=== PATIENT | male | born 1980 | race Caucasian/White ===

== ENCOUNTER 2018-10-26 18:54 | Emergency (ER) | payer SELFPAY ==
[2018-10-26 19:00] VITALS: BP 153/88
[2018-10-26] MEDS ORDERED: MAG HYDROX/AL HYDROX/SIMETH SUSP 30 ML UDCUP PO ONE (19:08)
[2018-10-26] MEDS ORDERED: METOCLOPRAMIDE HCL ORAL SOLN 10 MG/10 ML UDCUP PO ONE (19:08)
[2018-10-26] MEDS ORDERED: LIDOCAINE 2% VISCOUS SOLN 20 ML UDCUP PO ONE (19:08)
--- NOTE | 2018-10-26 19:11 | ER Document Report ---
ED Medical Screen (RME) - General Chief Complaint: Abdominal Pain Stated Complaint: ABDOMINAL PAIN Time Seen by Provider: 10/26/18 19:04 Mode of Arrival: Ambulatory Information source: Patient Notes: 38-year-old male presents emergency department with complaints of abdominal pain bloating for the past week. Reports some nausea. She recently quit smoking. Reports history of heartburn for 10 years. Patient also reports he takes a lot of ibuprofen for history of dental pain. I have greeted and performed a rapid initial assessment of this patient. A comprehensive ED assessment and evaluation of the patient, analysis of test results and completion of the medical decision making process will be conducted by additional ED providers. Dictation of this chart was performed using voice recognition software; therefore, there may be some unintended grammatical errors. - Related Data Allergies/Adverse Reactions: No Known Allergies Allergy (Verified 10/26/18 18:58) Physical Exam - Vital signs Vitals: Temp Pulse Resp BP Pulse Ox 98.6 F 64 16 153/88 H 96 10/26/18 18:58 10/26/18 18:58 10/26/18 18:58 10/26/18 18:58 10/26/18 18:58 Course - Vital Signs Vital signs: Temp Pulse Resp BP Pulse Ox 98.6 F 64 16 153/88 H 96 10/26/18 18:58 10/26/18 18:58 10/26/18 18:58 10/26/18 18:58 10/26/18 18:58
[2018-10-26 19:53] LABS: ABSOLUTE EOSINOPHILS # (AUTO) 0.3 10^3/uL (0.0-0.6); ABSOLUTE LYMPHOCYTES (AUTO) 1.9 10^3/uL (0.5-4.7); ABSOLUTE MONOCYTES (AUTO) 0.6 10^3/uL (0.1-1.4); ABSOLUTE NEUT (AUTO) 6.7 10^3/uL (1.7-8.2); BASOPHILS % (AUTO) 0.3 % (0-2); EOSINOPHILS % (AUTO) 2.7 % (0-6); HEMATOCRIT 42.7 % (37.9-51.0); HEMOGLOBIN 14.3 g/dL (13.5-17.0); LYMPHOCYTES % (AUTO) 19.9 % (13-45); MEAN CORPUSCULAR HEMOGLOBIN 27.4 pg (27.0-33.4); MEAN CORPUSCULAR HGB CONC 33.5 g/dL (32.0-36.0); MEAN CORPUSCULAR VOLUME 82 fl (80-97); MONOCYTES % (AUTO) 6.8 % (3-13); PLATELET COUNT 257 10^3/uL (150-450); RED BLOOD COUNT 5.22 10^6/uL (4.35-5.55); RED CELL DISTRIBUTION WIDTH 13.9 % (11.5-14.0); SEGMENTED NEUTROPHILS % (AUTO) 70.3 % (42-78); TOTAL CELLS COUNTED % (AUTO) 100 %; WHITE BLOOD COUNT 9.5 10^3/uL (4.0-10.5)
[2018-10-26 20:00] LABS: APPEARANCE,URINE CLEAR; BILIRUBIN,URINE NEGATIVE (NEGATIVE); COLOR,URINE YELLOW; GLUCOSE, URINE NEGATIVE (NEGATIVE); KETONES,URINE NEGATIVE (NEGATIVE); LEUKOCYTE ESTERASE,URINE NEGATIVE (NEGATIVE); NITRITE,URINE NEGATIVE (NEGATIVE); PROTEIN,URINE NEGATIVE (NEGATIVE); URINE SPECIFIC GRAVITY 1.024; UROBILINOGEN,URINE NEGATIVE mg/dL (<2.0)
[2018-10-26 20:11] LABS: ALBUMIN 4.3 g/dL (3.5-5.0); ALKALINE PHOSPHATASE 83 U/L (38-126); ANION GAP 9 (5-19); ASPARTATE AMINO TRANSFERASE 25 U/L (17-59); BILIRUBIN,DIRECT 0.1 mg/dL (0.0-0.4); BILIRUBIN,TOTAL 0.4 mg/dL (0.2-1.3); BLOOD UREA NITROGEN 22 mg/dL (7-20); CALCIUM 10.1 mg/dL (8.4-10.2); CARBON DIOXIDE 28 mmol/L (22-30); CHLORIDE 101 mmol/L (98-107); GLUCOSE 113 mg/dL (75-110); POTASSIUM 4.1 mmol/L (3.6-5.0); TOTAL PROTEIN 7.4 g/dL (6.3-8.2)
== END 2018-10-26 21:21 | disposition left against medical advice (07) ==
LOC: ER 18:54
DX: Z53.21 Procedure and treatment not carried out due to patient leaving prior to being seen by health care provider (principal); R10.9 Unspecified abdominal pain; R14.0 Abdominal distension (gaseous); R11.0 Nausea
CPT/HCPCS: 36415; 83690; 85025; 80053; 81001; J3490; 99281

== ENCOUNTER 2019-02-03 19:22 | Emergency (ER) | payer SELFPAY ==
[2019-02-03 19:44] VITALS: BP 126/79
[2019-02-03] MEDS ORDERED: KETOROLAC TROMETHAMINE 60 MG/2 ML SDV IM ONE (19:55)
--- NOTE | 2019-02-03 20:01 | ER Document Report ---
HPI - HPI Time Seen by Provider: 02/03/19 19:52 Notes: Patient is a 38-year-old male with no significant past medical history presents complaining of left trapezius muscle pain that radiates down into his back and occasionally into his arm is been ongoing since yesterday without precipitating event. Patient states that he supposed to work tomorrow, but if he has this type of pain he does now believe he can perform his duty appropriately and may need a work note. Denies drug allergies. Patient states that movement does make his pain worse. He is otherwise eating and drinking without difficulty. He is urinating normally. Denies any headache, fever, head injury, neck pain, URI, sore throat, chest pain, palpitations, syncope, cough, shortness of breath, wheeze, dyspnea, abdominal pain, nausea/vomiting/diarrhea, urinary retention, dysuria, hematuria, loss of control of bowel or bladder, numbness/tingling, saddle anesthesia, muscle paralysis/weakness, or rash. - ROS Systems Reviewed and Negative: Yes All other systems reviewed and negative Past Medical History - Social History Smoking Status: Unknown if Ever Smoked Family History: Reviewed & Not Pertinent Vertical Provider Document - CONSTITUTIONAL Agree With Documented VS: Yes Notes: PHYSICAL EXAMINATION: GENERAL: Well-appearing, well-nourished and in no acute distress. NECK: Normal range of motion, supple without lymphadenopathy. Non-tender. Spurling negative. No rigidity/meningismus. LUNGS: Breath sounds clear to auscultation bilaterally and equal. No wheezes rales or rhonchi. HEART: Regular rate and rhythm without murmurs, rubs, gallops. Musculoskeletal: Lt shoulder: FROM to passive/active. Strength 5+/5. Neg speed test. No crepitus. No erythema or warmth. No deformity or ecchymosis. RC intact 5+/5 strength. + reproducible tenderness and trigger point/spasming to the left trapezius muscle by palpation and ROM. Extremities: No cyanosis, clubbing, or edema b/l. Peripheral pulses 2+. Capillary refill less than 3 seconds. NEUROLOGICAL: Normal speech, normal gait. Normal sensory, motor exams PSYCH: Normal mood, normal affect. SKIN: Warm, Dry, normal turgor, no rashes or lesions noted. Course - Re-evaluation Re-evalutation: 02/03/19 19:59 Patient is an afebrile, well-hydrated, 38-year-old male who presents to the ED with Left trapezius muscle pain. Vitals are acceptable. PE is otherwise unremarkable for any focal neurological deficits. Pt given toradol IM. He has no significant tachycardia, tachypnea, or hypoxia. He is nontoxic-appearing and is tolerating p.o. without difficulties. There are no signs of infection. No other red flag symptoms noted. No other labs or imaging warranted at this time based on H&P. Low suspicion for any meningitis, fracture, expanding/ruptured A AA, cauda equina syndrome, septic joint, epidural mass lesion/abscess, herniated disc causing severe spinal stenosis, or other systemic infection at this time. Patient is aware that his condition can change from initial presentation and that he needs monitor symptoms closely for any acute changes. I will send him home with a prescription for motrin and robaxin. Conservative measures otherwise for symptoms. Recheck with your PCM in 3-5 days. Consider consult with orthopedic/physical therapy. Return to the ED with any worsening/concerning symptoms otherwise as reviewed discharge. Patient is in agreement. - Vital Signs Vital signs: Temp Pulse Resp BP Pulse Ox 98.0 F 82 16 126/79 H 96 02/03/19 19:44 02/03/19 19:44 02/03/19 19:44 02/03/19 19:44 02/03/19 19:44 Discharge - Discharge Clinical Impression: Trapezius muscle spasm Condition: Stable Disposition: HOME, SELF-CARE Instructions: Muscle Relaxers ([facility]) Additional Instructions: Rest, Ice, Compression Tylenol/ibuprofen as needed Light stretches daily Strength exercises as able Moist heat and massage may help F/u with your PCP in 3-5 days for a recheck Consider consult(s) with Orthopedics/physical therapy for ongoing/worsening symptoms Return to the ED with any worsening symptoms and/or development of fever, headache, chest pain, palpitations, syncope, shortness of breath, trouble breathing, abdominal pain, n/v/d, muscle weakness/paralysis, numbness/tingling, swelling, redness, or other worsening symptoms that are concerning to you. Prescriptions: Ibuprofen [Motrin 800 mg Tablet] 800 mg PO Q8H PRN #15 tab PRN Reason: Methocarbamol [Robaxin 750 mg Tablet] 750 mg PO TID PRN #10 tablet PRN Reason: Forms: Elevated Blood Pressure, Return to Work Referrals: [facility] [Provider Group] - Follow up as needed
== END 2019-02-03 20:18 | disposition home or self-care (01) ==
LOC: ER 19:22
DX: M62.830 Muscle spasm of back (principal); M25.512 Pain in left shoulder
CPT/HCPCS: 99283

== ENCOUNTER 2019-02-06 04:03 | Emergency (ER) | payer SELFPAY ==
[2019-02-06 05:09] LABS: ABSOLUTE BASOPHILS # (AUTO) 0.1 10^3/uL (0.0-0.2); ABSOLUTE EOSINOPHILS # (AUTO) 0.4 10^3/uL (0.0-0.6); ABSOLUTE LYMPHOCYTES (AUTO) 2.1 10^3/uL (0.5-4.7); ABSOLUTE MONOCYTES (AUTO) 0.5 10^3/uL (0.1-1.4); ABSOLUTE NEUT (AUTO) 4.9 10^3/uL (1.7-8.2); BASOPHILS % (AUTO) 0.7 % (0-2); EOSINOPHILS % (AUTO) 5.4 % (0-6); HEMATOCRIT 45.6 % (37.9-51.0); HEMOGLOBIN 15.3 g/dL (13.5-17.0); LYMPHOCYTES % (AUTO) 25.7 % (13-45); MEAN CORPUSCULAR HEMOGLOBIN 27.6 pg (27.0-33.4); MEAN CORPUSCULAR HGB CONC 33.6 g/dL (32.0-36.0); MEAN CORPUSCULAR VOLUME 82 fl (80-97); MONOCYTES % (AUTO) 6.7 % (3-13); PLATELET COUNT 240 10^3/uL (150-450); RED BLOOD COUNT 5.55 10^6/uL (4.35-5.55); RED CELL DISTRIBUTION WIDTH 13.7 % (11.5-14.0); SEGMENTED NEUTROPHILS % (AUTO) 61.5 % (42-78); TOTAL CELLS COUNTED % (AUTO) 100 %
[2019-02-06 05:28] LABS: ALKALINE PHOSPHATASE 76 U/L (38-126); ANION GAP 9 (5-19); ASPARTATE AMINO TRANSFERASE 23 U/L (17-59); BILIRUBIN,DIRECT 0.2 mg/dL (0.0-0.4); BILIRUBIN,TOTAL 0.3 mg/dL (0.2-1.3); BLOOD UREA NITROGEN 23 mg/dL (7-20); CALCIUM 9.5 mg/dL (8.4-10.2); CARBON DIOXIDE 29 mmol/L (22-30); CHLORIDE 103 mmol/L (98-107); CREATINE KINASE 137 U/L (55-170); GLUCOSE 114 mg/dL (75-110); POTASSIUM 3.8 mmol/L (3.6-5.0)
[2019-02-06 05:39] LABS: CREATINE KINASE MB 2.15 ng/mL (<4.55)
[2019-02-06 05:40] LABS: TROPONIN I < 0.012 ng/mL
--- NOTE | 2019-02-06 09:08 | EKG REPORT ---
SEVERITY:- ABNORMAL ECG - SINUS RHYTHM MULTIPLE ATRIAL PREMATURE COMPLEXES : Confirmed by: Aditya Cabezas MD 06-Feb-2019 09:07:44
--- NOTE | 2019-02-06 09:34 | ER Document Report ---
ED Cardiac - General Chief Complaint: Chest Pain Stated Complaint: CHEST PAIN Time Seen by Provider: 02/06/19 08:35 Primary Care Provider: [facility] [Provider Group] - Follow up in 3-5 days SHANTA DE LEON MD [ACTIVE STAFF] - Follow up in 3-5 days Notes: 38-year-old male with no significant past medical history presents with 6 chest pain that is sternal that started last night. Patient has been having left shoulder pain and numbness and tingling down his left arm for the past few days and was seen in this ER a few days ago and given muscle relaxers and ibuprofen. Patient states he became concerned when it started to radiate into his chest. Patient denies any associated dyspnea, nausea/vomiting, dizziness. Patient's family history is significant for a cousin who at the age of 22 due to cardiac issues. Patient denies any other family history. TRAVEL OUTSIDE OF THE [place] IN LAST 30 DAYS: No - Related Data Allergies/Adverse Reactions: No Known Allergies Allergy (Verified 10/26/18 18:58) Home Medications: robaxin prn. motrin prn Past Medical History - Social History Smoking Status: Former Smoker Family History: Reviewed & Not Pertinent Patient has suicidal ideation: No Patient has homicidal ideation: No Review of Systems - Review of Systems Notes: Constitutional: Negative for fever. HENT: Negative for sore throat. Eyes: Negative for visual changes. Cardiovascular: Positive for chest pain. Respiratory: Negative for shortness of breath. Gastrointestinal: Negative for abdominal pain, vomiting or diarrhea. Genitourinary: Negative for dysuria. Musculoskeletal: Positive for shoulder/arm pain. Negative for back pain. Skin: Negative for rash. Neurological: Negative for headaches, weakness or numbness. 10 point ROS negative except as marked above and in HPI. Physical Exam - Vital signs Vitals: Temp Pulse Resp BP Pulse Ox 98.1 F 69 18 135/86 H 97 02/06/19 04:17 02/06/19 04:17 02/06/19 04:17 02/06/19 04:17 02/06/19 04:17 - Notes Notes: GENERAL: Well-appearing, well-nourished and in no acute distress. HEAD: Atraumatic, normocephalic. EYES: Extraocular movements intact, sclera anicteric, conjunctiva are normal. NECK: Normal range of motion, supple without lymphadenopathy or JVD. LUNGS: Breath sounds clear to auscultation bilaterally and equal. No wheezes rales or rhonchi. HEART: Regular rate and rhythm without murmurs, rubs or gallops. EXTREMITIES: Normal range of motion, no pitting or edema. No clubbing or cyanosis. NEUROLOGICAL: Cranial nerves II through XII grossly intact. Normal speech, normal gait. PSYCH: Normal mood, normal affect. SKIN: Warm, Dry, normal turgor, no rashes or lesions noted. Course - Re-evaluation Re-evalutation: 02/06/19 Presentation of chest pain in an otherwise well appearing patient. Low clinical suspicion for ACS given clinical history, exam, EKG without ST elevations or depressions, and negative initial troponin. HEART score 1. PE also seems unlikely given clinical history, absence of tachycardia or dyspnea. Patient is PERC criteria negative. CXR without evidence of pneumothorax or pneumonia. No widened mediastinum. Aortic dissection also seems unlikely given history, symmetric pulses, CXR, and vitals. HEART Score: 1 Chest pain in a patient without evidence of cardiac or other serious etiology on workup today. I discussed with patient that, based on their age, risk factors and emergency department testing today, the likelihood that their symptoms are related to a heart attack is very low (estimated risk of heart attack or over the next 30 days of less than 1%). The patient demonstrates decision making capacity and has verbalized an understanding of these risks to me. Based on this, the patient has chosen to follow-up as an outpatient. Usual chest pain return precautions reviewed. The patient states understanding and agreement with this plan. 02/06/19 10:15 patient was prescribed Robaxin and ibuprofen last visit. Patient states this is not helping. Switch prescription to Flexeril. Patient given sedation warning. - Vital Signs Vital signs: Temp Pulse Resp BP Pulse Ox 98.2 F 69 15 139/97 H 100 02/06/19 08:08 02/06/19 04:17 02/06/19 09:01 02/06/19 09:01 02/06/19 09:01 - Laboratory Result Diagrams: 02/06/19 04:40 02/06/19 04:40 Laboratory results interpreted by me: 02/06/19 04:40 BUN 23 H Glucose 114 H - EKG Interpretation by Me EKG shows normal: Sinus rhythm Rate: Normal Rhythm: NSR - Rate 60 Discharge - Discharge Clinical Impression: Muscle strain Chest pain Qualifiers: Chest pain type: unspecified Qualified Code(s): R07.9 - Chest pain, unspecified Condition: Stable Disposition: HOME, SELF-CARE Instructions: Chest Pain of Unclear Cause ([facility]) Additional Instructions: You were seen today for chest pain. The exact cause of your pain is unclear. However, based on your cardiac enzyme testing, chest x-ray, and EKG it does not appear that it is from an immediately life-threatening cause at this time. Although your testing here is normal is critical that you follow-up with your primary care physician for continued evaluation of this chest pain and possible stress testing. I recommended you see your physician within the next 24-48 hours to be evaluated for consideration of a stress test. Please return to emergency department immediately if you have worsening of your chest pain, shortness of breath, vomiting, become unable to exert yourself due to pain or difficulty breathing, you pass out, or have any pain that radiates into your arms, jaw, or back. Please also return if you have any additional symptoms that are concerning to you. Prescriptions: Cyclobenzaprine HCl [Flexeril 10 mg Tablet] 10 mg PO TIDP PRN #15 tab PRN Reason: Forms: Return to Work Referrals: SHANTA DE LEON MD [ACTIVE STAFF] - Follow up in 3-5 days [facility] [Provider Group] - Follow up in 3-5 days
--- NOTE | 2019-02-06 09:51 | RADIOLOGY REPORT (SQ) ---
EXAM DESCRIPTION: CHEST 2 VIEWS COMPLETED DATE/TIME: 02/06/2019 9:38 am REASON FOR STUDY: chest pain COMPARISON: None. EXAM PARAMETERS: NUMBER OF VIEWS: two views TECHNIQUE: Digital Frontal and Lateral radiographic views of the chest acquired. RADIATION DOSE: NA LIMITATIONS: none FINDINGS: LUNGS AND PLEURA: No opacities, masses or pneumothorax. No pleural effusion. MEDIASTINUM AND HILAR STRUCTURES: No masses or contour abnormalities. HEART AND VASCULAR STRUCTURES: Heart normal size. No evidence for failure. BONES: No acute findings. HARDWARE: None in the chest. OTHER: No other significant finding. IMPRESSION: NO ACUTE RADIOGRAPHIC FINDING IN THE CHEST. TECHNICAL DOCUMENTATION: JOB ID: [id number] [employer]- All Rights Reserved Reading location - IP/workstation name: [email or web address]
[2019-02-06 11:03] VITALS: BP 137/95
== END 2019-02-06 11:01 | disposition home or self-care (01) ==
LOC: ER 04:03
DX: R07.9 Chest pain, unspecified (principal); M25.512 Pain in left shoulder; R20.0 Anesthesia of skin
CPT/HCPCS: 36415; 71046; 80053; 82550; 82553; 84484; 85025; 93005; 93010; 99285

== ENCOUNTER 2019-12-11 02:45 | Emergency (ER) | payer SELFPAY ==
[2019-12-11] MEDS ORDERED: PREDNISONE 20 MG TABLET PO ONE (05:18)
[2019-12-11] MEDS ORDERED: NORMAL SALINE 1000 ML 1,000 ML IV ONE (05:19)
[2019-12-11] MEDS ORDERED: ACETAMINOPHEN WITH CODEINE #3 TABLET PO ONE (05:19)
[2019-12-11] MEDS ORDERED: ACETAMINOPHEN 325 MG TABLET PO ONE (05:19)
[2019-12-11] MEDS ORDERED: IPRATROPIUM/ALBUTEROL 0.5-2.5 MG/3 ML AMPUL NEB ONE (05:20)
[2019-12-11] MEDS ORDERED: AZITHROMYCIN 250 MG TABLET PO ONE (05:33)
[2019-12-11 05:34] LABS: ABSOLUTE BASOPHILS # (AUTO) 0.1 10^3/uL (0.0-0.2); ABSOLUTE EOSINOPHILS # (AUTO) 0.8 10^3/uL (0.0-0.6); ABSOLUTE LYMPHOCYTES (AUTO) 1.3 10^3/uL (0.5-4.7); ABSOLUTE MONOCYTES (AUTO) 0.7 10^3/uL (0.1-1.4); ABSOLUTE NEUT (AUTO) 9.3 10^3/uL (1.7-8.2); BASOPHILS % (AUTO) 0.6 % (0-2); EOSINOPHILS % (AUTO) 6.7 % (0-6); HEMATOCRIT 47.5 % (37.9-51.0); HEMOGLOBIN 15.9 g/dL (13.5-17.0); MEAN CORPUSCULAR HEMOGLOBIN 27.7 pg (27.0-33.4); MEAN CORPUSCULAR HGB CONC 33.5 g/dL (32.0-36.0); MEAN CORPUSCULAR VOLUME 83 fl (80-97); MONOCYTES % (AUTO) 5.7 % (3-13); PLATELET COUNT 257 10^3/uL (150-450); RED BLOOD COUNT 5.74 10^6/uL (4.35-5.55); RED CELL DISTRIBUTION WIDTH 13.3 % (11.5-14.0); TOTAL CELLS COUNTED % (AUTO) 100 %; WHITE BLOOD COUNT 12.2 10^3/uL (4.0-10.5)
--- NOTE | 2019-12-11 05:41 | RADIOLOGY REPORT (SQ) ---
EXAM DESCRIPTION: XR CHEST 1 VIEW COMPLETED DATE/TME: 12/11/2019 04:59 CLINICAL HISTORY: 39 years, Male, cough SOB COMPARISON: 02/06/2019 NUMBER OF VIEWS: One TECHNIQUE: AP view of the chest LIMITATIONS: None. FINDINGS: The lungs are clear. The heart is normal in size. No pneumothorax or pleural effusion. Bones are unremarkable. IMPRESSION: No acute cardiopulmonary abnormality. copyright 2010 [employer]- All Rights Reserved
[2019-12-11 05:50] LABS: ALBUMIN 4.3 g/dL (3.5-5.0); ALKALINE PHOSPHATASE 91 U/L (38-126); ANION GAP 8 (5-19); ASPARTATE AMINO TRANSFERASE 34 U/L (17-59); BILIRUBIN,DIRECT 0.1 mg/dL (0.0-0.4); BILIRUBIN,TOTAL 0.9 mg/dL (0.2-1.3); BLOOD UREA NITROGEN 15 mg/dL (7-20); CALCIUM 9.6 mg/dL (8.4-10.2); CARBON DIOXIDE 31 mmol/L (22-30); CHLORIDE 102 mmol/L (98-107); CREATINE KINASE 463 U/L (55-170); GLUCOSE 113 mg/dL (75-110); PHOSPHORUS 3.4 mg/dL (2.5-4.5); POTASSIUM 4.5 mmol/L (3.6-5.0); TOTAL PROTEIN 7.6 g/dL (6.3-8.2)
--- NOTE | 2019-12-11 05:50 | ER Document Report ---
ED General - General Chief Complaint: Shortness Of Breath Stated Complaint: SOB, COUGH Notes: 39-year-old male history of smoking (quit 2 weeks ago) presents with approx imately 5 days of gradual onset gradually worsening cough productive of yellow/green nonbloody sputum, shortness of breath, myalgia, malaise, subjective fever, and numerous episodes of nonbloody nonblack diarrhea. Patient denies any asthma/COPD/reactive airway disease history, known sick contacts, syncope, chest pain, immune compromise history, drug use. Had negative Covid test at pharmacy about 5 days ago when symptoms started. TRAVEL OUTSIDE OF THE [place] IN LAST 30 DAYS: No - Related Data Allergies/Adverse Reactions: No Known Allergies Allergy (Verified 10/26/18 18:58) Past Medical History - General Information source: Patient - Social History Smoking Status: Former Smoker Family History: Reviewed & Not Pertinent Review of Systems - Review of Systems Notes: REVIEW OF SYSTEMS: CONSTITUTIONAL : + fever, chills, or sweats. EENT: -recent sinus symptoms, denies throat pain CARDIOVASCULAR: Denies chest pain, HORACIO RESPIRATORY: + cough, +shortness of breath. GASTROINTESTINAL: Denies abdominal pain, nausea/vomiting. GENITOURINARY: Denies difficulty urinating, painful urination. MUSCULOSKELETAL: Denies neck pain, back pain. SKIN: Denies rash or skin lesions. HEMATOLOGIC : Denies easy bruising or bleeding. LYMPHATIC: Denies swollen, enlarged glands. NEUROLOGICAL: Denies headache, denies change in gait. PSYCHIATRIC: Denies anxiety or stress or depression. Physical Exam - Vital signs Vitals: Temp Pulse Resp BP Pulse Ox 98.6 F 99 20 145/106 H 95 12/11/19 02:49 12/11/19 02:49 12/11/19 02:49 12/11/19 02:49 12/11/19 02:49 - Notes Notes: PHYSICAL EXAMINATION: GENERAL: Uncomfortable but nontoxic-appearing young adult male sitting up in stretcher in no acute distress HEAD: Atraumatic, normocephalic. EYES: Pupils equal round and appropriate constriction, sclera anicteric, conjunctiva are normal. ENT: nares patent, moist mucous membranes. NECK: Normal range of motion, supple without lymphadenopathy LUNGS: Mild tachypnea, no accessory muscle use, no tripoding, managing secretions, bilateral expiratory wheezing with decreased air movement HEART: Regular rate and rhythm without murmurs ABDOMEN: Soft, nontender, no guarding, no masses, no CVAT EXTREMITIES: Normal range of motion, no pitting or edema. No cyanosis. NEUROLOGICAL: Awake, alert, conversing appropriately, moves all extremities spontaneously. PSYCH: Normal mood, normal affect. SKIN: Warm, Dry, normal turgor, no rashes or lesions noted. Course - Re-evaluation Re-evalutation: 12/11/19 05:17 Symptoms concerning for possible COVID-19 infection versus pneumonia with component of possible new onset COPD versus new onset asthma. Patient denies any acute respiratory distress, mild tachypnea but no signs of impending respiratory failure. Patient with copious nonbloody diarrhea and myalgia, will obtain electrolytes to rule out any ERICA, electrolyte abnormalities, occult bleeding, rhabdo. Obtain x-ray to rule out pneumonia. Will give steroids and nebs and symptomatic treatment and azithro for COPD component 12/11/19 06:18 Patient significantly improved with nebs, increased air movement, still expiratory wheezing bilaterally. Patient's tachypnea has normalized. Very mild increase in CK with normal creatinine, having encouraged patient to increase p.o. fluid intake and have given fluid bolus. No emergent electrolyte abnormalities. No infiltrate on x-ray. Patient ready for discharge with standing albuterol, short burst of prednisone, Zithromax, and PCP follow-up. Gave patient extensive return to ED precautions which he demonstrated understanding of. The patient was evaluated during the global COVID-19 pandemic and that diagnosis was suspected/considered upon their initial presentation. Their evaluation, treatment and testing was consistent with current guidelines for patients who present with complaints or symptoms that may be related to COVID-19. - Vital Signs Vital signs: Temp Pulse Resp BP Pulse Ox 98.6 F 84 17 169/114 H 96 12/11/19 02:49 12/11/19 03:44 12/11/19 05:31 12/11/19 05:31 12/11/19 05:31 - Laboratory Result Diagrams: 12/11/19 04:55 12/11/19 04:55 Laboratory results interpreted by me: 12/11/19 12/11/19 04:55 04:55 WBC 12.2 H RBC 5.74 H Lymph % (Auto) 11.0 L Eos % (Auto) 6.7 H Absolute Neuts (auto) 9.3 H Absolute Eos (auto) 0.8 H Carbon Dioxide 31 H Glucose 113 H Creatine Kinase 463 H Discharge - Discharge Clinical Impression: Viral syndrome Reactive airway disease Qualifiers: Asthma severity: unspecified severity Asthma persistence: unspecified Asthma complication type: with acute exacerbation Qualified Code(s): J45.901 - Unspecified asthma with (acute) exacerbation Disposition: HOME, SELF-CARE Instructions: COVID-19 Guidance for Persons Under Investigation Additional Instructions: You are likely having a viral infection that is causing an asthma-like reaction which is causing her shortness of breath. Take albuterol inhaler 2 puffs every 4 hours over the next 5 days. Take all prednisone and azithromycin as prescribed. Follow-up with your primary doctor within 3 days. If you have any worsening muscle pain, decreased urination, change in color of your urine, lightheadedness, dizziness, fainting, difficulty breathing, chest pain, confusion, neck pain or stiffness, or any other worsening symptoms return to the emergency department immediately. Your blood pressure was elevated in the em ergency department to 169/114. That this may just be because you were uncomfortable during your visit, it is important that you have this rechecked by your primary doctor as untreated high blood pressure can cause heart attack, stroke, and . Prescriptions: Azithromycin 250 mg PO QAM 4 Days #4 tablet Prednisone [Deltasone 20 mg Tablet] 60 mg PO DAILY 4 Days #12 tablet Albuterol Sulfate [Proair HFA Inhalation Aerosol 8.5 gm MDI] 2 puff IH Q4H 5 Days #1 mdi Forms: Return to Work Referrals: MARIBELL LACY MD [[facility]ITY [facility]ED STAFF] - 12/13/19
[2019-12-11 06:37] VITALS: BP 149/80
[2019-12-11] MEDS ORDERED: ALBUTEROL SULFATE HFA (90 MCG/PUFF) 8 GM MDI (1 MDI/ER DISP) IH ONE (06:45)
== END 2019-12-11 06:53 | disposition home or self-care (01) ==
LOC: ER 02:45
DX: J45.901 Unspecified asthma with (acute) exacerbation (principal); B34.9 Viral infection, unspecified; R05 Cough; R06.02 Shortness of breath; M79.10 Myalgia, unspecified site; R53.81 Other malaise; R19.7 Diarrhea, unspecified; R50.9 Fever, unspecified; Z20.828 Contact with and (suspected) exposure to other viral communicable diseases; Z87.891 Personal history of nicotine dependence
CPT/HCPCS: 94640; 99284; 96360; 36415; 82550; 83735; 84100; 85025; 87635; 80053; 71045; J7512; J7030; C9803

== ENCOUNTER 2019-12-31 13:50 | Emergency (ER) | payer SELFPAY ==
[2019-12-31] MEDS ORDERED: IPRATROPIUM/ALBUTEROL 0.5-2.5 MG/3 ML AMPUL NEB ONE (14:11)
--- NOTE | 2019-12-31 14:16 | ER Document Report ---
ED Medical Screen (RME) - General Chief Complaint: Cough Stated Complaint: COUGH Time Seen by Provider: 12/31/19 14:03 TRAVEL OUTSIDE OF THE [place] IN LAST 30 DAYS: No - HPI Notes: 12/31/19 14:12 39-year-old male presents to the emergency room today for cough for the last 3 weeks, states he is coughing up "bile" productive cough and wheezing. Denies any history of asthma states he quit smoking about 2 weeks ago, started smoking when he was 17. Denies any nausea vomiting or diarrhea. Denies any fevers or chills. Patient did have a negative Covid test when he was seen here couple weeks ago. He was given a Z-Nghia, steroids and a rescue inhaler. Patient states he was feeling somewhat better but that his cough turned the corner and he has been feeling worse. Denies any chest pain, shortness of breath. Patient came back in because he states he is feeling worse, does not have a primary care provider I have greeted and performed a rapid initial assessment of this patient. A comprehensive ED assessment and evaluation of the patient, analysis of test results and completion of the medical decision making process will be conducted by additional ED providers. PHYSICAL EXAMINATION: GENERAL: Well-appearing, well-nourished and in no acute distress. HEAD: Atraumatic, normocephalic. EYES: Pupils equal round extraocular movements intact, conjunctiva are normal. NECK: Normal range of motion CV: s1, s2 regular LUNGS: Expiratory wheezes on auscultation noted - Related Data Allergies/Adverse Reactions: No Known Drug Allergies Allergy (Verified 12/31/19 14:05) Physical Exam - Vital signs Vitals: Temp Pulse Resp BP Pulse Ox 98.0 F 77 20 149/82 H 96 12/31/19 13:56 12/31/19 13:56 12/31/19 13:56 12/31/19 13:56 12/31/19 13:56 Course - Vital Signs Vital signs: Temp Pulse Resp BP Pulse Ox 98.0 F 77 20 149/82 H 96 12/31/19 13:56 12/31/19 13:56 12/31/19 13:56 12/31/19 13:56 12/31/19 13:56
--- NOTE | 2019-12-31 14:47 | RADIOLOGY REPORT (SQ) ---
EXAM DESCRIPTION: CHEST 2 VIEWS IMAGES COMPLETED DATE/TIME: 12/31/2019 2:37 pm REASON FOR STUDY: wheezing, productive cough x 3w COMPARISON: 12/11/2019 EXAM PARAMETERS: NUMBER OF VIEWS: two views TECHNIQUE: Digital Frontal and Lateral radiographic views of the chest acquired. RADIATION DOSE: NA LIMITATIONS: none FINDINGS: LUNGS AND PLEURA: No opacities, masses or pneumothorax. No pleural effusion. MEDIASTINUM AND HILAR STRUCTURES: No masses or contour abnormalities. HEART AND VASCULAR STRUCTURES: Heart normal size. No evidence for failure. BONES: No acute findings. HARDWARE: None in the chest. OTHER: No other significant finding. IMPRESSION: No evidence of acute cardiopulmonary abnormality. TECHNICAL DOCUMENTATION: JOB ID: [id number] [employer]- All Rights Reserved Reading location - IP/workstation name: [email or web address]
[2019-12-31 15:46] LABS: ABSOLUTE BASOPHILS # (AUTO) 0.1 10^3/uL (0.0-0.2); ABSOLUTE EOSINOPHILS # (AUTO) 1.2 10^3/uL (0.0-0.6); ABSOLUTE LYMPHOCYTES (AUTO) 1.6 10^3/uL (0.5-4.7); ABSOLUTE MONOCYTES (AUTO) 0.5 10^3/uL (0.1-1.4); ABSOLUTE NEUT (AUTO) 4.4 10^3/uL (1.7-8.2); BASOPHILS % (AUTO) 1.3 % (0-2); EOSINOPHILS % (AUTO) 15.2 % (0-6); HEMATOCRIT 42.6 % (37.9-51.0); HEMOGLOBIN 14.1 g/dL (13.5-17.0); LYMPHOCYTES % (AUTO) 20.2 % (13-45); MEAN CORPUSCULAR HEMOGLOBIN 27.2 pg (27.0-33.4); MEAN CORPUSCULAR HGB CONC 33.1 g/dL (32.0-36.0); MEAN CORPUSCULAR VOLUME 82 fl (80-97); MONOCYTES % (AUTO) 6.3 % (3-13); PLATELET COUNT 253 10^3/uL (150-450); RED BLOOD COUNT 5.17 10^6/uL (4.35-5.55); RED CELL DISTRIBUTION WIDTH 13.7 % (11.5-14.0); TOTAL CELLS COUNTED % (AUTO) 100 %; WHITE BLOOD COUNT 7.7 10^3/uL (4.0-10.5)
[2019-12-31 16:04] LABS: ALBUMIN 4.3 g/dL (3.5-5.0); ALKALINE PHOSPHATASE 70 U/L (38-126); ANION GAP 8 (5-19); ASPARTATE AMINO TRANSFERASE 24 U/L (17-59); BILIRUBIN,TOTAL 0.6 mg/dL (0.2-1.3); BLOOD UREA NITROGEN 20 mg/dL (7-20); CALCIUM 10.2 mg/dL (8.4-10.2); CARBON DIOXIDE 27 mmol/L (22-30); CHLORIDE 104 mmol/L (98-107); GLUCOSE 128 mg/dL (75-110); POTASSIUM 4.1 mmol/L (3.6-5.0); TOTAL PROTEIN 7.3 g/dL (6.3-8.2)
[2019-12-31 16:24] LABS: A TYPE INFLUENZA AG NEGATIVE (NEGATIVE); B INFLUENZA AG NEGATIVE (NEGATIVE)
--- NOTE | 2019-12-31 17:02 | ER Document Report ---
ED Respiratory Problem - General Chief Complaint: Cough Stated Complaint: COUGH Time Seen by Provider: 12/31/19 14:03 Primary Care Provider: REMEDIOS FARIAS MD [ACTIVE STAFF] - Follow up in 3-5 days TRAVEL OUTSIDE OF THE [place] IN LAST 30 DAYS: No - HPI Notes: Patient is a 39-year-old male who presents with a cough. Patient states he has had a cough for about 1 month. He was in the ER on 12/10 for similar symptoms. He had a negative chest x-ray and a negative Covid. Patient was discharged with an inhaler, prednisone, azithromycin. He states that he continues to have shortness of breath and coughing. No significant sputum production. He denies any chest pain. He states he is only short of breath after coughing. Patient states that the coughing spells are not improving. No fevers or chills. Patient is a smoker but states he quit smoking when the cough started at the beginning of this month. He does not have any medical history and does not see a doctor currently. States that the inhaler is helping him. He has no history of blood clots. No immobility. No leg swelling. - Related Data Allergies/Adverse Reactions: No Known Drug Allergies Allergy (Verified 12/31/19 14:05) Past Medical History - General Information source: Patient - Social History Smoking Status: Former Smoker Chew tobacco use (# tins/day): No Frequency of alcohol use: None Drug Abuse: None Family History: Reviewed & Not Pertinent Review of Systems - Review of Systems Notes: CONSTITUTIONAL: No fever, fatigue or weight loss. SKIN: No rash. HENT: No congestion, ear pain, or sore throat. EYES: No recent vision problems or eye pain. ENDOCRINE: No thyroid problems. No polyuria or polydipsia. CARDIOVASCULAR: No chest pain or edema. RESPIRATORY: Positive for cough, shortness of breath, wheezing. GASTROINTESTINAL: No abdominal pain, nausea, vomiting, bloody stools or diarrhea. MUSCULOSKELETAL: No joint pain or swelling. LYMPHATIC: No swollen glands. NEUROLOGIC: No seizures. No headache, focal weakness or sensory changes. HEMATOLOGIC: No unusual bruising or bleeding. PSYCHIATRIC: No depression or anxiety. Physical Exam - Vital signs Vitals: Temp Pulse Resp BP Pulse Ox 98.0 F 77 20 149/82 H 96 12/31/19 13:56 12/31/19 13:56 12/31/19 13:56 12/31/19 13:56 12/31/19 13:56 - General General appearance: Appears well Notes: VITAL SIGNS: Within normal limits. GENERAL: No acute distress, non-toxic appearance. HEAD: Normal with no signs of head trauma. EYES: EOMI, conjunctiva normal, no discharge. EARS: Hearing grossly intact. NOSE: Normal. NECK: Normal range of motion, no tenderness, supple, no lymphadenopathy, No adenopathy, no JVD. CHEST: Wheezing bilaterally. CARDIAC: Regular rate and rhythm. S1 and S2, without murmurs, gallops, or rubs. VASCULAR: No Edema. LYMPATHTIC: No lymphadenopathy noted. MUSCULOSKELETAL: Good range of motion of all major joints. Extremities without clubbing, cyanosis or edema. NEUROLOGICAL: Alert and oriented x 3. No focal sensory or strength deficits. Speech normal. Follows commands appropriately. PSYCHIATRIC: Normal Affect, judgement and mood. SKIN: Normal appearance with no rashes or lesions. Course - Re-evaluation Re-evalutation: 12/31/19 21:31 Patient's x-ray is negative. He states he did not get much relief with the DuoNeb. He does have wheezing. I had a long discussion with the patient. I offered to do a CAT scan to rule out a PE and pneumonia as he had 2 negative chest x-rays already. Patient declined. He states he does not want this done. Patient then did mention that they have a cat in the house now. He states he is allergic to cats. He thinks this may be a cause of his symptoms. I believe this is reasonable as he also has an elevated eosinophil count. Patient was instructed on allergy medication. 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 I offered to refill his inhaler. He is agreeable to this. He states he does not want any more steroids. Patient was given a family doctor to follow-up with. I gave him strict return precautions. Patient is very agreeable to the plan. His vitals are stable. - Vital Signs Vital signs: Temp Pulse Resp BP Pulse Ox 98.2 F 76 19 132/80 H 99 12/31/19 17:00 12/31/19 17:00 12/31/19 17:00 12/31/19 17:00 12/31/19 17:00 - Laboratory Result Diagrams: 12/31/19 15:22 12/31/19 15:22 Laboratory results interpreted by me: 12/31/19 12/31/19 15:22 15:22 Eos % (Auto) 15.2 H Absolute Eos (auto) 1.2 H Glucose 128 H - Diagnostic Test Radiology reviewed: Image reviewed, Reports reviewed Discharge - Discharge Clinical Impression: Cough, Wheezes Condition: Stable Disposition: HOME, SELF-CARE Instructions: COVID-19 Guidance for Persons Under Investigation, Cough Suppressant & Expectorant Medications Additional Instructions: Your work-up today is reassuring. Your chest x-ray is negative. You may try [id number] allergy medication. You may also continue using your inhaler. Please follow-up with the family doctor provided as he may need to do more testing. Please return to the ER for any worsening symptoms. Prescriptions: Albuterol Sulfate [Albuterol Sulfate Hfa] 2 puff IH Q6H PRN #1 [email or web address] PRN Reason: Referrals: REMEDIOS FARIAS MD [ACTIVE STAFF] - Follow up in 3-5 days
[2019-12-31 17:16] VITALS: BP 132/80
== END 2019-12-31 17:16 | disposition home or self-care (01) ==
LOC: ER 13:50
DX: R05 Cough (principal); R06.2 Wheezing; Z20.828 Contact with and (suspected) exposure to other viral communicable diseases
CPT/HCPCS: 94640; 99284; 36415; 85025; 87635; 80053; 87804; 71046; C9803

== ENCOUNTER 2020-01-18 10:42 | Emergency (ER) | payer SELFPAY ==
[2020-01-18] MEDS ORDERED: METHYLPREDNISOLONE INJ 125 MG/2 ML SDV IV ONE (11:34)
--- NOTE | 2020-01-18 11:34 | ER Document Report ---
ED Medical Screen (RME) - General Chief Complaint: Shortness Of Breath Stated Complaint: SHORT OF BREATH,COUGH Time Seen by Provider: 01/18/20 11:26 TRAVEL OUTSIDE OF THE [place] IN LAST 30 DAYS: No - HPI Notes: 01/18/20 11:31 39-year-old male presents to ED for evaluation of increased shortness of breath with exertion. Patient notes that he has been tested negative for Covid 3 times. Patient states that he has been using his inhaler was last used 1.5 hours prior to arrival. States that he still cannot catch his breath. Denies fever chills. Also notes intermittent chest pain worsening over the last week. Patient does also note some increased swelling to the lower extremities. States that they do go down when he elevates them. Denies any fever or chills. Denies any other complaints at this time. - Related Data Allergies/Adverse Reactions: No Known Drug Allergies Allergy (Verified 12/31/19 14:05) Home Medications: albuteral inhaler Past Medical History - Social History Chew tobacco use (# tins/day): No Frequency of alcohol use: None Drug Abuse: None Physical Exam - Vital signs Vitals: Temp Pulse Resp BP Pulse Ox 98.2 F 83 20 141/81 H 96 01/18/20 11:01 01/18/20 11:01 01/18/20 11:01 01/18/20 11:01 01/18/20 11:01 General: No acute distress. Alert and oriented x3. Sitting comfortably in a stretcher. Skin: No jaundice, pallor, petechiae, or rashes. Warm and dry. HEENT: Normocephalic, atraumatic. Pupils are equal round reactive to light and accommodation. Extraocular movements are intact. TMs without erythema or bulging. Canals are clear. Nares patent without any discharge. Teeth in good condition. Pharynx without erythema, edema, or exudates. Mucous membranes moist. No tonsillar enlargement. Uvula is midline. Airway is patent. Neck: Supple with no lymphadenopathy. Full range of motion. Heart: Regular rate and rhythm. S1,S2. No murmurs, rubs, or gallops. Lungs: No retractions noted. Inspiratory and expiratory wheezing throughout all lung graves. No crackles or rhonchi noted. Extremities: No pitting edema noted. No erythema. Neuro: GCS 15. Moving all extremities without discomfort. Course - Vital Signs Vital signs: Temp Pulse Resp BP Pulse Ox 98.2 F 83 20 141/81 H 96 01/18/20 11:01 01/18/20 11:01 01/18/20 11:01 01/18/20 11:01 01/18/20 11:01
[2020-01-18] MEDS ORDERED: IPRATROPIUM/ALBUTEROL 0.5-2.5 MG/3 ML AMPUL NEB ONE ×2 (12:08→12:15)
[2020-01-18 12:39] LABS: ABSOLUTE EOSINOPHILS # (AUTO) 1.6 10^3/uL (0.0-0.6); ABSOLUTE LYMPHOCYTES (AUTO) 1.6 10^3/uL (0.5-4.7); ABSOLUTE MONOCYTES (AUTO) 0.6 10^3/uL (0.1-1.4); ABSOLUTE NEUT (AUTO) 5.6 10^3/uL (1.7-8.2); BASOPHILS % (AUTO) 0.4 % (0-2); EOSINOPHILS % (AUTO) 16.9 % (0-6); HEMOGLOBIN 15.3 g/dL (13.5-17.0); LYMPHOCYTES % (AUTO) 16.4 % (13-45); MEAN CORPUSCULAR HEMOGLOBIN 27.4 pg (27.0-33.4); MEAN CORPUSCULAR HGB CONC 33.2 g/dL (32.0-36.0); MEAN CORPUSCULAR VOLUME 82 fl (80-97); MONOCYTES % (AUTO) 6.8 % (3-13); PLATELET COUNT 284 10^3/uL (150-450); RED BLOOD COUNT 5.58 10^6/uL (4.35-5.55); RED CELL DISTRIBUTION WIDTH 13.9 % (11.5-14.0); SEGMENTED NEUTROPHILS % (AUTO) 59.5 % (42-78); TOTAL CELLS COUNTED % (AUTO) 100 %; WHITE BLOOD COUNT 9.5 10^3/uL (4.0-10.5)
[2020-01-18 12:47] LABS: APPEARANCE,URINE SLIGHTLY-CLOUDY; BILIRUBIN,URINE NEGATIVE (NEGATIVE); COLOR,URINE YELLOW; GLUCOSE, URINE NEGATIVE (NEGATIVE); INTERNATIONAL RATION (INR) 0.95; KETONES,URINE NEGATIVE (NEGATIVE); LEUKOCYTE ESTERASE,URINE NEGATIVE (NEGATIVE); NITRITE,URINE NEGATIVE (NEGATIVE); PROTEIN,URINE NEGATIVE (NEGATIVE); PROTHROMBIN TIME 12.9 SEC (11.4-15.4); URINE SPECIFIC GRAVITY 1.024; UROBILINOGEN,URINE NEGATIVE mg/dL (<2.0)
[2020-01-18 13:00] LABS: ALBUMIN 4.4 g/dL (3.5-5.0); ALKALINE PHOSPHATASE 70 U/L (38-126); ASPARTATE AMINO TRANSFERASE 32 U/L (17-59); BILIRUBIN,DIRECT 0.1 mg/dL (0.0-0.4); BILIRUBIN,TOTAL 0.7 mg/dL (0.2-1.3); BLOOD UREA NITROGEN 17 mg/dL (7-20); C-REACTIVE PROTEIN 8.7 mg/L (<10.0); CALCIUM 10.5 mg/dL (8.4-10.2); GLUCOSE 123 mg/dL (75-110); POTASSIUM 4.2 mmol/L (3.6-5.0); TOTAL PROTEIN 7.7 g/dL (6.3-8.2)
[2020-01-18 13:03] LABS: ANION GAP 7 (5-19); CARBON DIOXIDE 33 mmol/L (22-30); CHLORIDE 100 mmol/L (98-107); D-DIMER < 0.27 ug/mL (0.00-0.50)
[2020-01-18 13:15] LABS: NT PRO BNP 45 pg/mL (<125)
[2020-01-18 13:17] LABS: TROPONIN I < 0.012 ng/mL
--- NOTE | 2020-01-18 13:17 | RADIOLOGY REPORT (SQ) ---
EXAM DESCRIPTION: CHEST SINGLE VIEW IMAGES COMPLETED DATE/TIME: 01/18/2020 10:58 am REASON FOR STUDY: pneumonia. COMPARISON: 12/11/2019 EXAM PARAMETERS: NUMBER OF VIEWS: One view. TECHNIQUE: Single frontal radiographic view of the chest acquired. RADIATION DOSE: NA LIMITATIONS: None. FINDINGS: LUNGS AND PLEURA: No opacities, masses or pneumothorax. No pleural effusion. MEDIASTINUM AND HILAR STRUCTURES: No masses. Contour normal. HEART AND VASCULAR STRUCTURES: Heart normal in size. Normal vasculature. BONES: No acute findings. HARDWARE: None in the chest. OTHER: No other significant finding. IMPRESSION: NO ACUTE RADIOGRAPHIC FINDING IN THE CHEST. TECHNICAL DOCUMENTATION: JOB ID: [id number] 2010 [employer]- All Rights Reserved Reading location - IP/workstation name: [email or web address]
[2020-01-18] MEDS: ALBUTEROL SULFATE 0.083% NEB 2.5 MG/3 ML AMPUL NEB SCH ×2 (13:18→13:32)
--- NOTE | 2020-01-18 14:28 | RADIOLOGY REPORT (SQ) ---
EXAM DESCRIPTION: CTA CHEST IMAGES COMPLETED DATE/TIME: 01/18/2020 2:06 pm REASON FOR STUDY: PE COMPARISON: None. TECHNIQUE: CT scan of the chest performed using helical scanning technique with dynamic intravenous contrast injection. Images reviewed with lung, soft tissue and bone windows. Reconstructed coronal and sagittal MPR images reviewed. Additional 3 dimensional post-processing performed to develop Maximal Intensity Projection images (ME P). All images stored on PACS. All CT scanners at this facility use dose modulation, iterative reconstruction, and/or weight based d osing when appropriate to reduce radiation dose to as low as reasonably achievable (ALARA). [facility]: Dose Right [facility]: CareDose [facility]: Dose Right [facility]: Teradose 4D [facility]: [employer] CONTRAST TYPE AND DOSE: contrast/concentration: Isovue 350.00 mmol/ml; Total Contrast Delivered: 75. 0 ml; Total Saline Delivered: 75.0 ml 75 mL Isovue 350- low osmolar. Contrast bolus optimized for the pulmonary arteries. Not diagnostic for the aorta. RENAL FUNCTION: BUN 17, creatinine 0.8 RADIATION DOSE: CT Rad equipment meets quality standard of care and radiation dose reduction techniq ues were employed. CTDIvol: 19.8 - 33.4 mGy. DLP: 1349 mGy-cm. . LIMITATIONS: None. FINDINGS: LUNGS AND PLEURA: Patchy right lower lobe ground-glass opacities. 3 mm solid nodule assoc iated with the minor fissure, most likely representing an intrapulmonary lymph node. No masses, infi ltrates, or pneumothorax. No pleural effusions or pleural calcifications. AORTA AND GREAT VESSELS: No aneurysm. Contrast bolus not optimized for the aorta. HEART: No pericardial effusion. No significant coronary artery calcifications. PULMONARY ARTERIES: No emboli visualized in the main pulmonary arteries or the segmental branches. HILAR AND MEDIASTINAL STRUCTURES: No identified masses or abnormal nodes. HARDWARE: None in the chest. UPPER ABDOMEN: No significant findings. Limited exam. THYROID AND OTHER SOFT TISSUES: No masses. No adenopathy. Bilateral gynecomastia. BONES: No acute or significant finding. 3D MIPS: Confirm above findings. OTHER: No other significant finding. IMPRESSION: No pulmonary embolism. Patchy right lower lobe ground-glass opacities, which in the acute setting may represent an atypical infection. COMMENT: Quality ID # [id number]: Final reports with documentation of one or more dose reduction techniques (e.g., Automated exposure control, adjustment of the mA and/or kV according to patient size, use of iterative reconstruction technique) TECHNICAL DOCUMENTATION: JOB ID: [id number] 2010 [email or web address]- All Rights Reserved Reading location - IP/workstation name: [email or web address]
--- NOTE | 2020-01-18 14:55 | EKG REPORT ---
SEVERITY:- BORDERLINE ECG - SINUS RHYTHM BORDERLINE INFERIOR Q WAVES : Confirmed by: Branden Wahl 18-Jan-2020 14:54:48
[2020-01-18 16:57] VITALS: BP 131/84
--- NOTE | 2020-01-21 08:22 | ER Document Report ---
Entered by JEANIE APONTE SCRIBE 01/18/20 1214 Acting as scribe for:DAHIANA RECIO MD ED General - General Chief Complaint: Shortness Of Breath Stated Complaint: SHORT OF BREATH,COUGH Time Seen by Provider: 01/18/20 11:26 Mode of Arrival: Ambulatory Information source: Patient, [facility] Records Notes: This 39-year-old male patient comes emergency room complaining of shortness of breath which is made worse with exertion. The patient quit smoking in mid November of this year. On 12/06/2019 he started having coughing and wheezing. He has been seen and Covid tested at least 3 times since then. Has been using inhalers with some benefit, has been on prednisone, was treated with Zithromax on 12/11/2019. His last visit to this emergency room was on 12/31/2019. Denies nausea vomiting headaches or chills. He also noted that he began having dependent edema after working all day which would go away after sleeping all night. This started about the same time the re spiratory symptoms started. No known suspicious exposures. 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 He does have pet snakes but washes his hands whenever he touches them. TRAVEL OUTSIDE OF THE [place] IN LAST 30 DAYS: No - Related Data Allergies/Adverse Reactions: No Known Drug Allergies Allergy (Verified 12/31/19 14:05) Home Medications: albuteral inhaler Past Medical History - General Information source: Patient, [facility] Records - Social History Smoking Status: Former Smoker Cigarette use (# per day): No Chew tobacco use (# tins/day): No Smoking Education Provided: No Frequency of alcohol use: None Drug Abuse: None Occupation: Mechanical Design Technician Lives with: Spouse/Significant other Family History: Reviewed & Not Pertinent - Medical History Medical History: Negative Surgical Hx: Negative Review of Systems - Review of Systems Constitutional: No symptoms reported EENT: No symptoms reported Cardiovascular: Dyspnea, Edema Respiratory: Cough, Short of breath, Wheezing. denies: Sputum Gastrointestinal: No symptoms reported Genitourinary: No symptoms reported Musculoskeletal: No symptoms reported Skin: No symptoms reported Hematologic/Lymphatic: No symptoms reported Neurological/Psychological: No symptoms reported Physical Exam - Vital signs Vitals: Temp Pulse Resp BP Pulse Ox 98.2 F 83 20 141/81 H 96 12/12/20 11:01 01/18/20 11:01 01/18/20 11:01 01/18/20 11:01 01/18/20 11:01 - General General appearance: Appears well, Alert In distress: None - HEENT Head: Normocephalic, Atraumatic Eyes: Normal Pupils: PERRL - Respiratory Respiratory status: Retractions, Tachypnea Chest status: Nontender Breath sounds: Rhonchi, Wheezing - Cardiovascular Rhythm: Regular Heart sounds: Normal auscultation Murmur: No - Abdominal Inspection: Normal - Back Back: Normal - Extremities General upper extremity: Normal inspection General lower extremity: Normal inspection - Neurological Neuro grossly intact: Yes - Psychological Associated symptoms: Normal affect, Normal mood - Skin Skin Temperature: Warm Skin Moisture: Dry Skin Color: Normal Course - Vital Signs Vital signs: Temp Pulse Resp BP Pulse Ox 98.2 F 83 16 125/84 100 01/18/20 11:01 01/18/20 11:01 01/18/20 14:02 01/18/20 13:33 01/18/20 14:02 - Laboratory Results Result Diagrams: 01/18/20 12:15 01/18/20 12:15 Laboratory Results Interpreted: 01/18/20 01/18/20 12:15 12:15 RBC 5.58 H Eos % (Auto) 16.9 H Absolute Eos (auto) 1.6 H Carbon Dioxide 33 H Glucose 123 H Calcium 10.5 H Critical Laboratory Results Reviewed: No Critical Results - Radiology Results Critical Radiology Results Reviewed: No Critical Results - CTA chest shows patchy right lower lobe groundglass opacities suggesting atypical infection. Discharge - Discharge Clinical Impression: Severe persistent reactive airway disease with wheezing without complication Right lower lobe pneumonia Qualifiers: Pneumonia type: due to unspecified organism Qualified Code(s): J18.9 - Pneumonia, unspecified organism Condition: Stable Disposition: HOME, SELF-CARE Additional Instructions: Pneumonia Your examination indicates that you have pneumonia. This is an infection of the lung tissue, usually caused by bacteria or a virus. Symptoms include cough, fever, shaking chills, chest pain, shortness of breath, and coughing up bloody sputum. Treatment for bacterial pneumonia includes rest, antibiotics for 10 to 14 days, increasing your clear liquid intake, a cool mist humidifier at your bedside, and fever medication. Often, a repeat chest X-ray is performed in a few weeks--even if you feel better--to ascertain whether the infection has completely resolved and no underlying lung problem is present. You should call the physician if you develop persistent vomiting, high fever that does not respond to fever medication, increasing shortness of breath, confusion, or lethargy. Also, failure to improve within two to three days is an indication for re-examination. Bronchitis with Bronchospasm (Wheezing) You have bronchitis with bronchospasm (wheezing). Sometimes people develop wheezing with a chest cold. This occurs either because of an underlying tendency toward asthma or because the virus itself irritates the bronchial tubes. This irritation causes cough, shortness of breath, and wheezing. Emergency treatment of bronchospasm may include adrenaline shots or bronchodilator aerosol. You may feel lightheaded and have a rapid pulse for an hour or two. Rest and get plenty of fluids. At home, we'll treat you with a bronchodilator inhaler. Corticosteroids may be required for some patients. Until you recover, avoid chemical fumes, dusts, p ollens, and exercising in very cold or dry air. If you smoke, stop now! Most cases of bronchitis get better without antibiotics. We prescribe antibiotics when we believe bacteria are damaging your airways, or if there's high risk the bronchitis will worsen into pneumonia. Increase your fluid intake. A cool mist humidifier may make your lungs more comfortable. An expectorant (cough medicine that loosens phlegm) can help. Repeated episodes of bronchitis and bronchospasm may result in lung damage -- for example, chronic bronchitis, recurrent pneumonias, or emphysema. If you develop a fever, increased wheezing, chest pain, or severe shortness of breath, you should contact the doctor immediately. Take medications as prescribed. Drink plenty of fluids get plenty of rest. Follow-up with a primary care provider for further testing if you do not begin to improve over the next several days. RETURN TO THE EMERGENCY ROOM IF ANY NEW OR WORSENING SYMPTOMS. Prescriptions: Prednisone [Deltasone 20 mg Tablet] 20 mg PO ASDIR PRN #16 tablet PRN Reason: Doxycycline Hyclate 100 mg PO BID #28 tablet. Albuterol Sulfate [Proair Hfa Inhalation Aerosol 8.5 gm Mdi] 2 puff IH ASDIR PRN #1 mdi PRN Reason: Forms: Return to Work I personally performed the services described in the documentation, reviewed and edited the documentation which was dictated to the scribe in my presence, and it accurately records my words and actions.
== END 2020-01-18 15:49 | disposition home or self-care (01) ==
LOC: ER 10:42
DX: J45.50 Severe persistent asthma, uncomplicated (principal); J18.9 Pneumonia, unspecified organism; R06.02 Shortness of breath; R07.9 Chest pain, unspecified; R60.9 Edema, unspecified; Z79.899 Other long term (current) drug therapy; Z87.891 Personal history of nicotine dependence
CPT/HCPCS: 93005; 94640 ×2; 99285; 96374; 36415; 87040; 83735; 85025; 85610; 86140; 80053; 81001; 84484; 85379; 83880; 71045; 71275; 93010; J2930; J7613

== ENCOUNTER 2020-02-12 10:47 | Emergency (ER) | payer SELFPAY ==
[2020-02-12 11:48] LABS: ABSOLUTE BASOPHILS # (AUTO) 0.1 10^3/uL (0.0-0.2); ABSOLUTE LYMPHOCYTES (AUTO) 0.9 10^3/uL (0.5-4.7); ABSOLUTE MONOCYTES (AUTO) 0.6 10^3/uL (0.1-1.4); ABSOLUTE NEUT (AUTO) 5.9 10^3/uL (1.7-8.2); BASOPHILS % (AUTO) 0.7 % (0-2); HEMATOCRIT 42.5 % (37.9-51.0); HEMOGLOBIN 14.3 g/dL (13.5-17.0); LYMPHOCYTES % (AUTO) 10.8 % (13-45); MEAN CORPUSCULAR HEMOGLOBIN 27.3 pg (27.0-33.4); MEAN CORPUSCULAR HGB CONC 33.6 g/dL (32.0-36.0); MEAN CORPUSCULAR VOLUME 81 fl (80-97); MONOCYTES % (AUTO) 7.1 % (3-13); PLATELET COUNT 245 10^3/uL (150-450); RED BLOOD COUNT 5.23 10^6/uL (4.35-5.55); RED CELL DISTRIBUTION WIDTH 14.4 % (11.5-14.0); SEGMENTED NEUTROPHILS % (AUTO) 69.4 % (42-78); TOTAL CELLS COUNTED % (AUTO) 100 %; WHITE BLOOD COUNT 8.5 10^3/uL (4.0-10.5)
[2020-02-12 12:10] LABS: ALKALINE PHOSPHATASE 68 U/L (38-126); ASPARTATE AMINO TRANSFERASE 34 U/L (17-59); BILIRUBIN,DIRECT 0.2 mg/dL (0.0-0.4); BILIRUBIN,TOTAL 0.7 mg/dL (0.2-1.3); BLOOD UREA NITROGEN 19 mg/dL (7-20); CALCIUM 9.3 mg/dL (8.4-10.2); CARBON DIOXIDE 30 mmol/L (22-30); CHLORIDE 104 mmol/L (98-107); GLUCOSE 91 mg/dL (75-110); POTASSIUM 4.1 mmol/L (3.6-5.0); TOTAL PROTEIN 7.2 g/dL (6.3-8.2)
[2020-02-12 12:13] LABS: ANION GAP 4 (5-19)
--- NOTE | 2020-02-12 12:50 | RADIOLOGY REPORT (SQ) ---
EXAM DESCRIPTION: CHEST SINGLE VIEW IMAGES COMPLETED DATE/TIME: 02/12/2020 11:33 am REASON FOR STUDY: cough COMPARISON: 01/18/2020 EXAM PARAMETERS: NUMBER OF VIEWS: One view. TECHNIQUE: Single frontal radiographic view of the chest acquired. RADIATION DOSE: NA LIMITATIONS: None. FINDINGS: LUNGS AND PLEURA: No opacities, masses or pneumothorax. No pleural effusion. MEDIASTINUM AND HILAR STRUCTURES: No masses. Contour normal. HEART AND VASCULAR STRUCTURES: Heart normal in size. Normal vasculature. BONES: No acute findings. HARDWARE: None in the chest. OTHER: No other significant finding. IMPRESSION: NO ACUTE RADIOGRAPHIC FINDING IN THE CHEST. TECHNICAL DOCUMENTATION: JOB ID: [id number] 2010 [employer]- All Rights Reserved Reading location - IP/workstation name: [email or web address]
--- NOTE | 2020-02-12 13:48 | ER Document Report ---
ED General - General Chief Complaint: Cough Stated Complaint: COUGH,SHORTNESS OF BREATH, Time Seen by Provider: 02/12/20 13:07 TRAVEL OUTSIDE OF THE [place] IN LAST 30 DAYS: No - HPI Notes: Patient is a 39-year-old male who presents to emergency department for evaluation of cough and shortness of breath. He states this is been ongoing since November, coincidentally when he quit smoking. He claims to suffer from intermittent fevers and chills, he is unsure of when his last fever was. He denies any anosmia or difficulty tasting. No nausea or vomiting. No diarrhea. He states he was diagnosed with pneumonia on CT scan, is concerned this was happening again. He has not yet followed up with anybody in regards to this issue. Patient also admits to suffering from frequent acid reflux. He takes Tums as needed. - Related Data Allergies/Adverse Reactions: No Known Drug Allergies Allergy (Verified 02/12/20 11:31) Past Medical History - General Information source: Patient - Social History Smoking Status: Former Smoker Family History: Reviewed & Not Pertinent, Hypertension, Malignancy, Other - "Blood clots" Patient has homicidal ideation: No Review of Systems - Review of Systems Constitutional: See HPI EENT: No symptoms reported Physical Exam - Vital signs Vitals: Temp Pulse Resp BP Pulse Ox 98.3 F 93 20 127/74 H 97 02/12/20 10:56 02/12/20 10:56 02/12/20 10:56 02/12/20 10:56 02/12/20 10:56 - Notes Notes: Vital signs reviewed, please refer to chart. Head is normocephalic, atraumatic. Pupils equal round, reactive to light. Neck is supple without meningismus. H eart is regular rate and rhythm. Lungs reveal scant and scattered expiratory wheezes throughout. Abdomen is soft, nontender, normoactive bowel sounds throughout. Extremities without cyanosis, clubbing. Posterior calves are nontender. Peripheral pulses are equal. Skin is warm and dry. Patient is awake, alert, neurological exam is nonfocal. Course - Re-evaluation Re-evalutation: 02/12/20 13:50 Patient presents to the emergency department for evaluation. He had lab work and imaging as ordered per protocol. His lab work is unremarkable. His imaging is unremarkable. This gentleman has an oxygen saturation of 97% on room air. He does have scant wheezing but I do not have any clinical suspicion for pneumonia given his negative chest x-ray, nonfocal findings on exam. I told him that he would likely need tested for COPD. I also told him that treatment for acid reflux can sometimes help with wheezing and will write him a prescription for some Prevacid as well. He voiced understanding. I told him he needs to follow-up with primary care for ongoing treatment of this issue which has become chronic in nature. He voiced understanding and was discharged. - Vital Signs Vital signs: Temp Pulse Resp BP Pulse Ox 98.3 F 93 20 127/74 H 97 02/12/20 10:56 02/12/20 10:56 02/12/20 10:56 02/12/20 10:56 02/12/20 10:56 - Laboratory Results Result Diagrams: 02/12/20 11:26 02/12/20 11:26 Laboratory Results Interpreted: 02/12/20 02/12/20 11:26 11:26 RDW 14.4 H Lymph % (Auto) 10.8 L Eos % (Auto) 12.0 H Absolute Eos (auto) 1.0 H Anion Gap 4 L Critical Laboratory Results Reviewed: No Critical Results - Radiology Results Radiology Results Interpreted: 02/12/20 13:52 Chest X-Ray 02/12/20 11:29 IMPRESSION: NO ACUTE RADIOGRAPHIC FINDING IN THE CHEST. Critical Radiology Results Reviewed: No Critical Results Discharge - Discharge Clinical Impression: Wheezy bronchitis Condition: Stable Disposition: HOME, SELF-CARE Instructions: Bronchitis With Bronchospasm (Wheezing) ([facility]) Additional Instructions: You are being treated for bronchitis with bronchospasm, being given a prescription for prednisone as well as albuterol. Your chest x-ray failed to show any signs of an acute pneumonia, your blood work was unremarkable. Given your history I strongly suggest you follow-up with primary care. You may in fact have a diagnosis of COPD and this warrants further testing. We will also start you on a medication to help with acid reflux, as this has been known to cause wheezing in a certain population of patients. Please avoid excessive caffeine, alcohol, nicotine. Follow-up with primary care in 1 to 2 weeks. Return to the emergency department with worsening or new concerning symptoms of any sort. Prescriptions: Prednisone [Deltasone 20 mg Tablet] See Protocol PO DAILY 5 Days #20 tablet Lansoprazole [Prevacid 24Hr] 15 mg PO DAILY #30 capsule. Albuterol Sulfate [Proair HFA Inhalation Aerosol 8.5 gm MDI] 2 puff IH Q4H 5 Da ys #1 mdi
[2020-02-12 14:11] VITALS: BP 138/88
== END 2020-02-12 14:14 | disposition home or self-care (01) ==
LOC: ER 10:47
DX: J40 Bronchitis, not specified as acute or chronic (principal); R06.2 Wheezing; R06.02 Shortness of breath
CPT/HCPCS: 36415; 71045; 80053; 85025; 99284